=== PATIENT | female | born 1985 | race African-American/Black ===

== ENCOUNTER 2019-05-06 03:10 | Emergency (ER) | payer SELFPAY ==
[~2019-05-06] VITALS: Ht 165.1 cm; Wt 104.0 kg
[2019-05-06] MEDS ORDERED: ACETAMINOPHEN 325MG TABLET PO ONE (06:00)
[2019-05-06 06:08] VITALS: BP 138/80
== END 2019-05-06 06:22 | disposition home or self-care (01) ==
LOC: ER 03:10
DX: J06.9 Acute upper respiratory infection, unspecified (principal); R04.0 Epistaxis; E11.9 Type 2 diabetes mellitus without complications
CPT/HCPCS: 71045; 99283

== ENCOUNTER 2024-02-01 22:45 | Emergency (ER) | payer SELFPAY ==
[~2024-02-01] VITALS: Ht 162.6 cm; Wt 106.0 kg
[2024-02-01 22:52] VITALS: TEMP 98.6; O2SAT 99
[2024-02-02 00:04] LABS: CLARITY URINE CLEAR (CLEAR); COLOR URINE YELLOW (YELLOW); GLUCOSE URINE 3+ (NEGATIVE); KETONES URINE NEGATIVE (NEGATIVE); LEUKOCYTE ESTERASE URINE TRACE (NEGATIVE); NITRITE URINE NEGATIVE (NEGATIVE); OCCULT BLOOD URINE NEGATIVE (NEGATIVE); PH URINE 5.5 (4.5-8.0); PROTEIN URINE NEGATIVE (NEGATIVE); SPECIFIC GRAVITY URINE 1.027 (1.005-1.030); UROBILINOGEN URINE 0.2 E.U./dL (0.2-1.0)
[2024-02-02 00:10] LABS: BASOPHILS % 1.2 % (0.0-2.0); DIFFERENTIAL COMMENT 0; EOSINOPHILS % 1.7 % (0.0-5.0); HEMATOCRIT. 44.8 % (36.0-48.0); HEMOGLOBIN. 14.6 g/dL (12.0-16.0); LYMPHOCYTES % 37.5 % (20.0-50.0); MEAN CORPUSCULAR HEMOGLOBIN 25.7 pg (28.0-32.0); MEAN CORPUSCULAR HGB CONC 32.6 g/dL (31.0-37.0); MEAN CORPUSCULAR VOLUME 78.9 fL (81.0-99.0); MONOCYTES % 4.6 % (2.0-8.0); PLATELET 165 x1000/uL (130-400); RED BLOOD CELL COUNT 5.68 mill/uL (4.2-5.4); RED CELL DISTRIBUTION WIDTH 14.8 % (11.6-14.6); WHITE BLOOD COUNT 8.7 x1000/uL (4.5-11.0)
[2024-02-02 00:13] LABS: CARBON DIOXIDE 27 mEq/L (21-32); CHLORIDE 105 mEq/L (98-107); POTASSIUM 4.9 mEq/L (3.5-5.1); SODIUM 136 mEq/L (136-145)
[2024-02-02 00:14] LABS: CALCIUM 9.8 mg/dL (8.7-10.4)
[2024-02-02 00:18] LABS: CREATININE 1.2 mg/dL (0.6-1.0)
[2024-02-02 00:19] LABS: GLUCOSE 369 mg/dL (70-105); UREA NITROGEN BLOOD 11 mg/dL (9-23)
[2024-02-02 00:20] LABS: ALANINE AMINOTRANSFERASE 16 IU/L (10-49)
[2024-02-02 00:21] LABS: ALBUMIN 4.2 g/dL (3.2-4.8); ASPARTATE AMINOTRANSFERASE 17 IU/L (<34); BILIRUBIN TOTAL 0.3 mg/dL (0.1-1.0); PROTEIN TOTAL 7.5 g/dL (6.0-8.3)
[2024-02-02 00:26] LABS: BILIRUBIN DIRECT < 0.1 mg/dL (<=3.0)
[2024-02-02 01:30] LABS: BETA HYDROXYBUTYRATE 0.2 mMol/L (0.0-0.3)
[2024-02-02] MEDS: SODIUM CHLORIDE 0.9% 1,000 ML IV ONE (01:34)
[2024-02-02] MEDS: METFORMIN HCL 500MG TABLET PO ONE (01:34)
[2024-02-02 01:46] VITALS: BP 142/82; PULSE 78; RESP 16; O2SAT 98
[2024-02-02 01:58] LABS: HCG SCREEN NEGATIVE
[2024-02-02] MEDS ORDERED: METF-416 MT (02:24)
[2024-02-02 02:26] LABS: SQUAMOUS EPITHELIAL CELL URINE FEW /lpf (RARE/1+)
[2024-02-02 02:29] LABS: RBC URINE NONE SEEN /hpf (0-2)
[2024-02-02 02:31] LABS: BACTERIA URINE TRACE
[2024-02-02] MEDS ORDERED: NITR-87 MT (02:40)
== END 2024-02-02 03:03 | disposition home or self-care (01) ==
LOC: ER 22:45
DX: E11.65 Type 2 diabetes mellitus with hyperglycemia (principal); N39.0 Urinary tract infection, site not specified
CPT/HCPCS: 99285; 71045; 80076; 80048; 81003; 82010; 82962 ×2; 84703; 83690; 85025; 36415; 93005; 96360; 81025; J7030